=== PATIENT | female | born 1975 | race Caucasian/White ===

== ENCOUNTER 2021-12-27 17:29 | Emergency (ER) | payer OTHER ==
[~2021-12-27] VITALS: Ht 162.6 cm; Wt 49.9 kg
[2021-12-27 17:39] VITALS: BP 145/102
[2021-12-27] MEDS ORDERED: METH4TAB3 PO (18:15)
--- NOTE | 2021-12-27 18:20 | NUR ---
FOR COVID AND RAPID STREP SWABSACI INSTRUCTIONS PRINTED, NOT IN ROOM
--- NOTE | 2021-12-27 18:35 | NUR ---
Patient discharged to home in stable condition. Written and verbal after care instructions given. Patient verbalizes understanding of instruction.
== END 2021-12-27 18:36 | disposition home or self-care (01) ==
LOC: ER 17:30
DX: J02.9 Acute pharyngitis, unspecified (principal); Z20.822 Contact with and (suspected) exposure to COVID-19
CPT/HCPCS: 87070; 87426; 87880; 99283; C9803; 86403-TC